=== PATIENT | female | born 1970 | race Hispanic/Latino ===

== ENCOUNTER 2017-09-09 18:24 | Emergency (ER) | payer SELFPAY ==
[2017-09-09 19:10] LABS: #Eosinphils 0.1 thou/uL (0.0-0.7); #Lymphocytes 2.1 thou/uL (1.20-3.40); #Monocytes 0.5 thou/uL (0.11-0.59); #Neutrophils 5.7 thou/uL (1.40-6.50); %Basophils 0.3 % (0.0-1.0); %Eosinophils 0.9 % (0.0-10.0); %Lymphocytes 24.7 % (21.0-51.0); %Monocytes 5.5 % (0.0-10.0); %Neutrophils 68.5 % (42.0-75.0); Hemoglobin 10.9 g/dL (12.0-16.0); Mean Corpuscular HGB CONC 33.4 g/dL (32.0-36.0); Mean Corpuscular Hemoglobin 30.6 pg (27.0-31.0); Mean Corpuscular Volume 91.6 fl (81.0-99.0); Mean Platelet Volume 6.8 fL (7.4-10.4); Platelet Count 307 thou/uL (130-400); RBC Distribution Width 12.3 % (11.5-14.5); Red Blood Cell (RBC) Count 3.56 mill/uL (4.20-5.40); White Blood Cell (WBC) Count 8.3 thou/uL (4.8-10.8)
[2017-09-09 19:14] LABS: BHCG - Serum POSITIVE (NEGATIVE); Pregs Control Background? CLEAR/WHITE (CLR/WHITE); Pregs Control Bar Appear? YES (CONTROL BAR)
[2017-09-09 19:58] LABS: Bilirubin Negative (Negative); Blood, Urine Large (Negative); Clarity CLOUDY (Clear); Glucose, Urine (Dipstick) 100 mg/dL (Negative); Leukocyte Moderate (Negative); Nitrite Negative (Negative); Protein, Urine (Dipstick) 100 mg/dL (Neg-Trace); Specific Gravity, Urine 1.019 (1.002-1.036)
[2017-09-09 20:03] LABS: Bacteria/HPF 2+ HPF (None Seen); Hyaline Casts/LPF NONE SEEN LPF (0-3 Hyaline)
== END 2017-09-09 22:39 | disposition home or self-care (01) ==
LOC: ERS 18:24
DX: O9A.212 Injury, poisoning and certain other consequences of external causes complicating pregnancy, second trimester (principal); S30.1XXA Contusion of abdominal wall, initial encounter; O23.42 Unspecified infection of urinary tract in pregnancy, second trimester; O09.522 Supervision of elderly multigravida, second trimester; Z3A.16 16 weeks gestation of pregnancy; W50.0XXA Accidental hit or strike by another person, initial encounter
CPT/HCPCS: 36415; 81003; 81015; 84702; 84703; 85025; 86900; 86901

== ENCOUNTER 2018-01-13 10:37 | Inpatient (IN) | payer OTHER, SELFPAY ==
[2018-01-13 11:07] VITALS: BMI 36.1
[2018-01-13 12:57] VITALS: BP 124/68; TEMP 98.3
[2018-01-13 13:00] LABS: #Lymphocytes 1.8 thou/uL (1.20-3.40); #Monocytes 0.5 thou/uL (0.11-0.59); #Neutrophils 4.3 thou/uL (1.40-6.50); %Basophils 0.4 % (0.0-1.0); %Eosinophils 0.7 % (0.0-10.0); %Lymphocytes 26.8 % (21.0-51.0); %Neutrophils 64.1 % (42.0-75.0); Hemoglobin 11.9 g/dL (12.0-16.0); Mean Corpuscular Hemoglobin 31.6 pg (27.0-31.0); Mean Platelet Volume 7.8 fL (7.4-10.4); Platelet Count 220 thou/uL (130-400); RBC Distribution Width 12.8 % (11.5-14.5); Red Blood Cell (RBC) Count 3.77 mill/uL (4.20-5.40); White Blood Cell (WBC) Count 6.6 thou/uL (4.8-10.8)
[2018-01-13 13:21] LABS: ALT (SGPT) 12 U/L (8-55); AST (SGOT) 15 U/L (5-34); Alkaline Phosphatase 205 U/L (40-150); Anion Gap 13 mmol/L (10-20); BUN (Urea Nitrogen) 8 mg/dL (7.0-18.7); Bilirubin, Total 0.4 mg/dL (0.2-1.2); Calc. Creatinine Clearance 153 mL/min (70-130); Calcium 8.5 mg/dL (7.8-10.44); Carbon Dioxide 14 mmol/L (22-29); Chloride 111 mmol/L (98-107); Estimated GFR-MDRD Greater than 90; Glucose 100 mg/dL (70-105); Potassium 3.5 mmol/L (3.5-5.1); Sodium 134 mmol/L (136-145)
[2018-01-13 13:28] LABS: Creatinine, Urine 38.96 mg/dL (47-110)
--- NOTE | 2018-01-13 15:39 | ULT ---
OBSTETRIC SONOGRAM SONOGRAPHIC BIOPHYSICAL PROFILE EXAM: History: induced hypertension. Third trimester . FINDINGS: Multiple transabdominal sonographic images show single intrauterine gestation in cephalic presentatio n. Cervix predominately obscured by calcified cranium. Advanced age limits detail. Three vessel cord shows a normal insertion. Four chamber heart shows motion at 136 beats/minute. Grade II placent a is posterior. Amniotic fluid is within normal limits. Within umbilical peak systolic velocity 131 cm/sec. Diastolic velocity 42 cm/sec. Systolic/diastolic ratio is 3.1, within normal limits. At sonography, good tone and gross movements were demonstrated. Amniotic fluid index is 6.9, wi th a 3.4 cm pocket of fluid at quadrant 1. breathing movement was not well demonstrated with so nography. Measurements are as follows: BPD 33 weeks 6 days HC 33 weeks 4 days AC 34 weeks 4 days FL 32 weeks 0 days Estimated date of delivery based on today's sonogram is 9-19-18. Headlock percentile 63%. IMPRESSION: 1. Single viable intrauterine gestation with estimated gestational age based on today's sonogram of 3 3 weeks 5 days. 2. Sonographic biophysical profile score is 6/8, ( breathing movements not visualized). POS: [facility]
[2018-01-13] MEDS: Betamet Acet/Betamet Na Ph 30 MG/5 ML VIAL IM SCH (19:22)
[2018-01-13] MEDS ORDERED: Dextrose 5% in Water 1,000 ML IV PRN (22:18)
[2018-01-13] MEDS ORDERED: Dextrose 50% Abboject 50 ML SYRINGE IVP PRN (22:18)
[2018-01-13] MEDS ORDERED: HumaLOG 300 UNITS/3 ML VIAL SC SCH (22:30)
[2018-01-14] MEDS: HumaLOG 300 UNITS/3 ML VIAL SC SCH ×2 (11:57→17:17)
[2018-01-14 12:52] LABS: Collection Duration 24 hrs; Urine Total Volume 2100 mL (600-1600)
[2018-01-14 13:11] LABS: Protein - 24 Hr 1365 mg/24 hr (Less than 300); Protein, Urine 65 mg/dL (1-14)
[2018-01-14] MEDS ORDERED: hydrOXYzine 25 MG TAB PO SCH (17:30)
[2018-01-14] MEDS ORDERED: HumaLOG 300 UNITS/3 ML VIAL SC ONE (17:30)
[2018-01-14] MEDS: Betamet Acet/Betamet Na Ph 30 MG/5 ML VIAL IM SCH (19:22)
== END 2018-01-14 19:50 | disposition home health service (06) | DRG 781 ==
LOC: L&D 10:37 → OBSVTOIN 10:37
PROVIDERS: ADMIT Family Medicine; ATTEND Family Medicine
DX: O24.419 Gestational diabetes mellitus in pregnancy, unspecified control (principal); Z3A.33 33 weeks gestation of pregnancy
CPT/HCPCS: 36415; 36416; 76700; 76805; 76819; 80053; 82239; 82570; 84156; 85025; 99285

== ENCOUNTER 2018-01-23 19:02 | Day surgery (SDC) | payer SELFPAY ==
[2018-01-23 19:55] VITALS: BP 119/59; TEMP 99
[2018-01-23 21:08] LABS: ALT (SGPT) 24 U/L (8-55); AST (SGOT) 30 U/L (5-34); Albumin 2.9 g/dL (3.5-5.0); Alkaline Phosphatase 246 U/L (40-150); Anion Gap 11 mmol/L (10-20); BUN (Urea Nitrogen) 21 mg/dL (7.0-18.7); Bilirubin, Total 0.6 mg/dL (0.2-1.2); Calc. Creatinine Clearance 0 mL/min (70-130); Calcium 9.2 mg/dL (7.8-10.44); Carbon Dioxide 19 mmol/L (22-29); Chloride 110 mmol/L (98-107); Estimated GFR-MDRD 76; Globulin 2.9 g/dL (2.4-3.5); Glucose 109 mg/dL (70-105); Potassium 4.1 mmol/L (3.5-5.1); Protein, Total 5.8 g/dL (6.0-8.3); Sodium 136 mmol/L (136-145)
--- NOTE | 2018-01-23 21:17 | PDOC.LDHP ---
Labor and Delivery H&P Chief complaint: decreased movement (with dizziness) HPI: 47 y/o at 34w3d, patient of Dr. Storm, presents for dizziness and decreased FM today. Her adult daughter was present to translate and reported the patient had low BP today with associated dizziness. She was recently diagnosed with cholestasis and started her medication today. Denies VB, LOF, ctx or other concerns. ROS neg for HEENT, cv, pulm, gi, gu, neuro, psych, skin, musculoskeletal, or constitutional symptoms other than mentioned above. OB History Details: All prior term SVDs. Current complications: gestational diabetes Past Medical History: None Current medications: other (insulin, ursodiol) Previous surgical history: none Allergies/Adverse Reactions: Allergies Allergy/AdvReac Type Severity Reaction Status Date / Time No Known Allergies Allergy Unverified 01/13/18 10:59 Social history: none - Physical Exam Vital signs reviewed and normal: yes General: NAD, resting Lungs: nonlabored breathing Abdomen: gravid Extremeties: no edema FHT: category 1 (135, mod variability, + accels, no decels) [place] contractions every: rare - OB Labs Additional Labs: Laboratory Results - last 24 hr 01/23/18 01/23/18 20:23 20:41 Sodium 136 Potassium 4.1 Chloride 110 H Carbon Dioxide 19 L Anion Gap 11 BUN 21 H Creatinine 0.81 Estimated GFR (MDRD) 76 Glucose 109 H POC Glucose 110 Calcium 9.2 Total Bilirubin 0.6 AST 30 ALT 24 Alkaline Phosphatase 246 H Serum Total Protein 5.8 L Albumin 2.9 L Globulin 2.9 Albumin/Globulin Ratio 1.0 L - Assessment 47 y/o at 34w3d with reactive NST. Offered IV fluids but patient declined. She wishes to continue PO hydration. Labs reviewed and AST/ALT wnl. - Plan -: D/c home with precautions. Advised to follow up with Dr. Storm within 1 week for follow up of cholestasis. Advised to stay well hydrated and return with worsening of symptoms.
== END 2018-01-23 21:45 | disposition home or self-care (01) ==
LOC: L&D/OP 19:02
PROVIDERS: ATTEND Family Medicine
DX: O36.8130 Decreased fetal movements, third trimester, not applicable or unspecified (principal); O99.89 Other specified diseases and conditions complicating pregnancy, childbirth and the puerperium; O24.419 Gestational diabetes mellitus in pregnancy, unspecified control; R42 Dizziness and giddiness; Z3A.34 34 weeks gestation of pregnancy
CPT/HCPCS: 36415; 36416; 80053; 99283

== ENCOUNTER 2018-02-04 12:28 | Inpatient (IN) | payer MEDICAID, SELFPAY ==
[2018-02-04] MEDS ORDERED: Butorphanol Tartrate 1 MG/ML VIAL SLOW IVP PRN (14:02)
[2018-02-04] MEDS ORDERED: Ondansetron HCl/PF 4 MG/2 ML Vial IVP PRN (14:02)
[2018-02-04] MEDS ORDERED: Promethazine HCl 25 MG/ML VIAL IM PRN (14:02)
[2018-02-04] MEDS ORDERED: Zolpidem Tartrate 5 MG TAB PO PRN (14:02)
[2018-02-04] MEDS ORDERED: Lactated Ringer's 1,000 ML IV SCH (14:15)
[2018-02-04 14:31] LABS: Hemoglobin 12.6 g/dL (12.0-16.0); Mean Corpuscular HGB CONC 35.6 g/dL (32.0-36.0); Mean Corpuscular Hemoglobin 33.1 pg (27.0-31.0); Mean Corpuscular Volume 92.9 fL (78.0-98.0); Mean Platelet Volume 8.7 fL (7.4-10.4); Platelet Count 127 thou/uL (130-400); RBC Distribution Width 13.8 % (11.5-14.5); Red Blood Cell (RBC) Count 3.82 mill/uL (4.20-5.40); White Blood Cell (WBC) Count 7.2 thou/uL (4.8-10.8)
--- NOTE | 2018-02-04 14:39 | PDOC.LDHP ---
Labor and Delivery H&P Chief complaint: other (Blood Pressure) HPI: 47 y/o at 36w1d with known preeclampsia, cholestasis of , and gestational diabetes who presented with severely elevated BPs. Has frontal ESCUDERO /10 this morning, has not taken anything for the pain. Denies vision changes, or RUQ pain. No VB, LOF, ctx, or decreased FM. Last ultrasound yesterday, growth wnl. Umbilical artery dopplers have been wnl. ROS neg for HEENT, cv, pulm, gi, gu, neuro, psych, skin, musculoskeletal, or constitutional symptoms other than mentioned above. OB History Details: 5 prior TSVDs, uncomplicated Current complications: preeclampsia without severe features, other ( AMA, cholestasis, GDM) Past Medical History: None Current medications: pre-david vitamins Previous surgical history: none Allergies/Adverse Reactions: Allergies Allergy/AdvReac Type Severity Reaction Status Date / Time No Known Allergies Allergy Unverified 01/13/18 10:59 Social history: none - Physical Exam Abnormal vital signs: Normal to Severe range BPs General: NAD, resting Lungs: nonlabored breathing Abdomen: gravid Extremeties: no edema FHT: category 1 (150s, mod variability, + accels, no decels) [place] contractions every: none - OB Labs Blood type: A RH: positive - Assessment Admit to L&D - Plan -: Serial BPs. Repeat labs pending. Tylenol for ESCUDERO. Discussed with Dr. Storm.
[2018-02-04 14:47] VITALS: BMI 38.2
[2018-02-04 14:53] LABS: ALT (SGPT) 14 U/L (8-55); AST (SGOT) 21 U/L (5-34); Albumin 2.4 g/dL (3.5-5.0); Alkaline Phosphatase 270 U/L (40-150); Anion Gap 11 mmol/L (10-20); BUN (Urea Nitrogen) 13 mg/dL (7.0-18.7); Bilirubin, Total 0.5 mg/dL (0.2-1.2); Calc. Creatinine Clearance 126 mL/min (70-130); Carbon Dioxide 19 mmol/L (22-29); Chloride 111 mmol/L (98-107); Estimated GFR-MDRD 80; Glucose 82 mg/dL (70-105); Potassium 3.8 mmol/L (3.5-5.1); Protein, Total 5.4 g/dL (6.0-8.3); Sodium 137 mmol/L (136-145)
[2018-02-04] MEDS: Acetaminophen 500 MG TAB PO PRN (15:03)
[2018-02-04] MEDS: hydrOXYzine 25 MG TAB PO PRN (20:25)
[2018-02-04] MEDS: Ursodiol 300 MG CAP PO SCH (20:27)
[2018-02-04] MEDS ORDERED: Insulin Glargine 8 UNITS in Pre-Filled Syringe 1 EACH SC SCH (21:00)
[2018-02-05 06:28] LABS: #Eosinphils 0.1 thou/uL (0.0-0.7); #Lymphocytes 2.2 thou/uL (1.20-3.40); #Monocytes 0.5 thou/uL (0.11-0.59); #Neutrophils 4.3 thou/uL (1.40-6.50); %Basophils 0.2 % (0.0-1.0); %Eosinophils 1.3 % (0.0-10.0); %Lymphocytes 30.8 % (21.0-51.0); %Monocytes 6.5 % (0.0-10.0); %Neutrophils 61.2 % (42.0-75.0); Hemoglobin 12.1 g/dL (12.0-16.0); Mean Corpuscular HGB CONC 34.9 g/dL (32.0-36.0); Mean Corpuscular Hemoglobin 32.5 pg (27.0-31.0); Mean Corpuscular Volume 93.1 fL (78.0-98.0); Mean Platelet Volume 9.6 fL (7.4-10.4); Platelet Count 128 thou/uL (130-400); RBC Distribution Width 13.7 % (11.5-14.5); Red Blood Cell (RBC) Count 3.72 mill/uL (4.20-5.40)
[2018-02-05 06:48] LABS: ALT (SGPT) 13 U/L (8-55); AST (SGOT) 20 U/L (5-34); Albumin 2.2 g/dL (3.5-5.0); Alkaline Phosphatase 259 U/L (40-150); Anion Gap 9 mmol/L (10-20); BUN (Urea Nitrogen) 13 mg/dL (7.0-18.7); Bilirubin, Total 0.5 mg/dL (0.2-1.2); Calc. Creatinine Clearance 130 mL/min (70-130); Calcium 8.1 mg/dL (7.8-10.44); Carbon Dioxide 16 mmol/L (22-29); Chloride 113 mmol/L (98-107); Estimated GFR-MDRD 82; Globulin 2.8 g/dL (2.4-3.5); Glucose 136 mg/dL (70-105); Potassium 3.6 mmol/L (3.5-5.1); Sodium 134 mmol/L (136-145)
[2018-02-05] MEDS: Ursodiol 300 MG CAP PO SCH ×4 (07:02→19:37)
[2018-02-05] MEDS: hydrOXYzine 25 MG TAB PO PRN (08:02)
[2018-02-05] MEDS: Acetaminophen 500 MG TAB PO PRN (08:02)
[2018-02-05 11:25] LABS: Bilirubin Negative (Negative); Blood, Urine Large (Negative); Clarity CLEAR (Clear); Glucose, Urine (Dipstick) Negative (Negative); Leukocyte Negative (Negative); Nitrite Negative (Negative); Protein, Urine (Dipstick) 100 mg/dL (Neg-Trace); Specific Gravity, Urine 1.004 (1.002-1.036)
[2018-02-05 11:40] LABS: Bacteria/HPF None Seen HPF (None Seen); Hyaline Casts/LPF 0-3 HYALINE CAST LPF (0-3 Hyaline); Pathc Cast-AUWi Flag 0.29 (0-2.49); Squamous Epithelial 0-3 HPF (0-3); WBC/HPF None Seen HPF (0-3)
[2018-02-05] MEDS: hydrALAZINE 20 MG/ML VIAL ONE (12:10)
[2018-02-05] MEDS: Lactated Ringer's 1,000 ML IV SCH ×2 (15:30→18:15)
[2018-02-05] MEDS: hydrALAZINE 20 MG/ML VIAL SLOW IVP PRN ×3 (15:39→21:05)
[2018-02-05] MEDS ORDERED: NS / Oxytocin 40 units/1000ml 1,000 ML IV PRN (15:41)
[2018-02-05] MEDS ORDERED: Misoprostol 200 MCG TAB PR PRN (15:41)
[2018-02-05] MEDS ORDERED: HYDROcodone/Acetaminophen 5/325 mg Tablet PO PRN (15:41)
[2018-02-05] MEDS ORDERED: Calcium Gluc 4.6 MEQ/10 ML (100 MG/ML) SLOW IVP PRN (15:41)
[2018-02-05] MEDS ORDERED: Carboprost 250 MCG/ML AMP IM PRN (15:41)
[2018-02-05] MEDS ORDERED: Diphenoxylate HCl/Atropine Tablet PO PRN (15:41)
[2018-02-05] MEDS ORDERED: Lidocaine 1% (PF) 30 ML VIAL SC PRN (15:41)
[2018-02-05] MEDS ORDERED: NS w/ Oxytocin 10 units 500 ML IV SCH (15:45)
[2018-02-05] MEDS ORDERED: Magnesium Sulfate 20 GM/WATER 500 ML BAG IVPB SCH (15:45)
[2018-02-05] MEDS ORDERED: NS w/ Oxytocin 10 units 500 ML ONE (15:46)
[2018-02-05] MEDS ORDERED: DISCONTINUE ALL PREVIOUS NARCOTICS FS SCH (16:00)
[2018-02-05] MEDS: Magnesium Sulfate 20 gm/500 ml 20 GM/500 ML BAG ONE ×2 (16:35→23:12)
[2018-02-05] MEDS ORDERED: Lidocaine 1% (PF) 30 ML VIAL ONE (17:32)
[2018-02-05] MEDS: Bupivacaine 0.5% 20 ML, fentaNYL Citrate/PF 400 MCG in Sodium Chloride 0.9% 72 ML EPIDURAL SCH (17:47)
[2018-02-05] MEDS ORDERED: PHENYLEPHRINE-NS 100 MCG/ML 10 ML SYRINGE ONE (18:11)
[2018-02-05] MEDS ORDERED: Ondansetron HCl/PF 4 MG/2 ML Vial IVP PRN (18:25)
[2018-02-05] MEDS ORDERED: Promethazine HCl 25 MG/ML VIAL IM PRN (18:25)
[2018-02-05] MEDS ORDERED: Acetaminophen 325 MG TAB PO PRN (18:25)
[2018-02-05] MEDS ORDERED: diphenhydrAMINE 50 MG/ML VIAL IVP PRN (18:25)
[2018-02-05] MEDS ORDERED: Eucerin (Mineral Oil/Petrolatum,White) 30 gm Jar TOP PRN (18:25)
[2018-02-05] MEDS ORDERED: Lactated Ringer's 500 ML IV PRN (18:25)
[2018-02-05] MEDS ORDERED: Naloxone HCl 0.4 mg/ml Vial IVP PRN ×2 (18:25)
[2018-02-05] MEDS ORDERED: ePHEDrine/0.9% NaCl/PF SYRINGE 50 mg/10 ml SLOW IVP PRN (18:25)
[2018-02-05] MEDS ORDERED: Communication Order-Pharmacy FS SCH (18:30)
[2018-02-05] MEDS ORDERED: fentaNYL Citrate/PF 400 MCG, Bupivacaine 0.5% 20 ML in Sodium Chloride 0.9% 72 ML EPIDURAL SCH (18:30)
[2018-02-05 20:00] LABS: HBSAg Index 0.16 S/CO (0-0.99); Hep B Surf Ag Non-Reactive S/CO (NonReactive); Syphilis Antibody Nonreactive (Nonreactive); Syphilis Antibody Index 0.26 S/CO (<1.00 Non-Reactive)
[2018-02-05] MEDS ORDERED: Cepastat Lozenges 1 LOZ PO PRN (21:48)
[2018-02-06] MEDS: Lactated Ringer's 1,000 ML IV SCH ×2 (01:29→21:11)
[2018-02-06] MEDS: Bupivacaine 0.5% 20 ML, fentaNYL Citrate/PF 400 MCG in Sodium Chloride 0.9% 72 ML EPIDURAL SCH (01:59)
[2018-02-06] MEDS: Ursodiol 300 MG CAP PO SCH ×2 (02:21→09:15)
[2018-02-06] MEDS ORDERED: Ondansetron HCl/PF 4 MG/2 ML Vial IVP PRN (04:45)
[2018-02-06] MEDS ORDERED: Benzocaine/Menthol 20-0.5% 60 ML CAN TOP PRN (04:45)
[2018-02-06] MEDS ORDERED: Calcium Gluconate 4.6 MEQ in Sodium Chloride 0.9% 100 ML IVPB PRN (04:45)
[2018-02-06] MEDS ORDERED: Lanolin Ointment 7 GM TUBE TOP PRN (04:45)
[2018-02-06] MEDS ORDERED: Bisacodyl 10 MG SUPP PR PRN (04:45)
[2018-02-06] MEDS ORDERED: HYDROcodone/Acetaminophen 5/325 mg Tablet PO PRN ×2 (04:45)
[2018-02-06] MEDS ORDERED: Milk Of Magnesia 30 ML UDCUP PO PRN (04:45)
[2018-02-06] MEDS ORDERED: NS / Oxytocin 40 units/1000ml 1,000 ML IV SCH (04:45)
[2018-02-06] MEDS ORDERED: Adacel (T-DAP) 0.5 ML VIAL IM ONE (04:45)
[2018-02-06] MEDS ORDERED: diphenhydrAMINE 25 MG CAP PO PRN (04:45)
[2018-02-06] MEDS: hydrALAZINE 20 MG/ML VIAL SLOW IVP PRN ×3 (05:20→05:36)
[2018-02-06] MEDS: hydrALAZINE 20 MG/ML VIAL ONE (06:19)
[2018-02-06] MEDS ORDERED: Metoclopramide HCl 10 MG/2 ML VIAL IVP PRN (07:39)
[2018-02-06] MEDS ORDERED: hydrALAZINE 20 MG/ML VIAL SLOW IVP PRN (07:42)
[2018-02-06] MEDS ORDERED: Metoclopramide HCl 10 MG/2 ML VIAL IVP SCH (07:45)
[2018-02-06] MEDS ORDERED: HumaLOG 300 UNITS/3 ML VIAL SC ONE (07:45)
[2018-02-06] MEDS: Magnesium Sulfate 20 gm/500 ml 20 GM/500 ML BAG IVPB SCH ×2 (07:48→16:46)
[2018-02-06] MEDS: Prenatal Vitamin 1 TAB PO SCH (09:19)
[2018-02-06] MEDS: Ferrous Sulfate 325 MG TAB PO SCH ×2 (09:20→17:44)
[2018-02-06] MEDS: Docusate Calcium (SURFAK) 240 MG CAP PO SCH ×2 (10:10→22:59)
[2018-02-06] MEDS: Ibuprofen 800 MG TAB PO SCH ×3 (10:25→22:59)
[2018-02-07] MEDS: Magnesium Sulfate 20 gm/500 ml 20 GM/500 ML BAG IVPB SCH (02:21)
[2018-02-07 05:42] LABS: Hemoglobin 12.1 g/dL (12.0-16.0); Mean Corpuscular HGB CONC 35.4 g/dL (32.0-36.0); Mean Corpuscular Hemoglobin 33.2 pg (27.0-31.0); Mean Corpuscular Volume 93.9 fL (78.0-98.0); Mean Platelet Volume 8.5 fL (7.4-10.4); Platelet Count 166 thou/uL (130-400); RBC Distribution Width 14.3 % (11.5-14.5); Red Blood Cell (RBC) Count 3.63 mill/uL (4.20-5.40); White Blood Cell (WBC) Count 12.2 thou/uL (4.8-10.8)
[2018-02-07] MEDS: Ibuprofen 800 MG TAB PO SCH ×3 (06:30→21:59)
[2018-02-07] MEDS: NS w/ Oxytocin 10 units 500 ML IV SCH ×3 (07:15→15:36)
[2018-02-07] MEDS: Ferrous Sulfate 325 MG TAB PO SCH ×2 (08:18→15:36)
[2018-02-07] MEDS: Prenatal Vitamin 1 TAB PO SCH (09:10)
[2018-02-07] MEDS: Docusate Calcium (SURFAK) 240 MG CAP PO SCH ×2 (09:10→21:59)
[2018-02-07] MEDS: Lactated Ringer's 1,000 ML IV SCH ×2 (09:41→22:49)
[2018-02-07] MEDS: Ursodiol 300 MG CAP PO SCH (09:41)
[2018-02-07] MEDS: Losartan/Hydrochlorothiazide 100 mg/25 mg Tablet PO SCH (10:51)
[2018-02-07] MEDS ORDERED: Lidocaine 2% PF Inj 2 ML VIAL ONE (12:34)
[2018-02-07] MEDS ORDERED: ePHEDrine/0.9% NaCl/PF SYRINGE 50 mg/10 ml ONE (12:34)
[2018-02-07] MEDS ORDERED: Sodium Chloride 0.9% (PF) 10 ML VIAL ONE (12:34)
[2018-02-08] MEDS: Ibuprofen 800 MG TAB PO SCH (05:57)
[2018-02-08 09:01] VITALS: BP 139/74; TEMP 98.6
[2018-02-08] MEDS: Losartan/Hydrochlorothiazide 100 mg/25 mg Tablet PO SCH (09:40)
[2018-02-08] MEDS: Ferrous Sulfate 325 MG TAB PO SCH (09:40)
[2018-02-08] MEDS: Prenatal Vitamin 1 TAB PO SCH (09:40)
[2018-02-08] MEDS: Docusate Calcium (SURFAK) 240 MG CAP PO SCH (09:40)
[2018-02-08] MEDS: Lactated Ringer's 1,000 ML IV SCH (10:07)
== END 2018-02-08 14:50 | disposition home or self-care (01) | DRG 775 ==
LOC: L&D/OP 12:28 → EDSTATUS 12:31 → L&D 14:34 → 3SW 02-07 08:10
PROVIDERS: ADMIT Family Medicine; ATTEND Family Medicine
PROC: 3E033VJ Introduction of Other Hormone into Peripheral Vein, Percutaneous Approach (ICD-10-PCS; 2018-02-05)
PROC: 10907ZC Drainage of Amniotic Fluid, Therapeutic from Products of Conception, Via Natural or Artificial Opening (ICD-10-PCS; 2018-02-05)
PROC: 10E0XZZ Delivery of Products of Conception, External Approach (ICD-10-PCS; principal; 2018-02-06)
DX: O14.14 Severe pre-eclampsia complicating childbirth (principal); K83.1 Obstruction of bile duct; O26.62 Liver and biliary tract disorders in childbirth; O24.424 Gestational diabetes mellitus in childbirth, insulin controlled; Z3A.36 36 weeks gestation of pregnancy; Z37.0 Single live birth
CPT/HCPCS: 36415; 36416; 80053; 81001; 83735; 85025; 85027; 86780; 86850; 86900; 86901; 87086; 87340; 88307; A4353; J0360; J2001; J2405; J2765; J3010; J3475; J3490; J7050